=== PATIENT | male | born 1965 | race Two or more races ===

== ENCOUNTER 2024-04-30 13:28 | Emergency (ER) | payer OTHER ==
[~2024-04-30] VITALS: Ht 175.3 cm; Wt 96.2 kg
[2024-04-30 16:26] VITALS: BP 171/91; O2SAT 98
[2024-04-30] MEDS ORDERED: DICLOFENAC SODI75 MG PO (17:30)
[2024-04-30] MEDS ORDERED: DEXAMETHASONE SODIUM PHOSPHATE 4 MG/ML VIAL IM ONE (17:30)
[2024-04-30] MEDS ORDERED: KETOROLAC TROMETHAMINE 60 MG VIAL IM ONE ×2 (17:30→17:33)
[2024-04-30] MEDS ORDERED: BACLOFEN10 MG PO (17:30)
[2024-04-30] MEDS ORDERED: ORPHENADRINE CITRATE 100 MG TABLET PO ONE (17:30)
[2024-04-30] MEDS ORDERED: DEXAMETHASONE SODIUM PHOSPHATE 4 MG/ML VIAL ONE (17:33)
== END 2024-04-30 17:56 | disposition home or self-care (01) ==
LOC: ER 13:30
DX: M54.50 Low back pain, unspecified (principal)